=== PATIENT | male | born 1985 | race Caucasian/White ===

== ENCOUNTER 2024-04-28 17:35 | Emergency (ER) | payer MEDICAID ==
[~2024-04-28] VITALS: Ht 182.9 cm; Wt 98.5 kg
[2024-04-28] MEDS ORDERED: CLIN-214 PO (18:44)
[2024-04-28] MEDS: clindamycin 150mg capsule PO ONE (18:52)
[2024-04-28 19:23] VITALS: BP 171/114; PULSE 81; RESP 17; TEMP 98.2; O2SAT 100
[2024-04-28] MEDS: LIDOcaine 1% W/epiNEPHrine 1:100,000 20ml vial SQ ONE (19:23)
== END 2024-04-28 19:25 | disposition home or self-care (01) ==
LOC: ER 17:37
DX: L02.212 Cutaneous abscess of back [any part, except buttock and flank] (principal)
CPT/HCPCS: 99283

== ENCOUNTER 2024-09-14 01:42 | Emergency (ER) | payer MEDICAID ==
[~2024-09-14] VITALS: Ht 182.9 cm; Wt 91.0 kg
[~2024-09-14 01:42] MED LIST: CHLO118L3 TOP; CLIN-214 PO; MUPI22OI30 TOP
[2024-09-14] MEDS: normal saline 1000ml 1,000 ML IV ONE (02:26)
[2024-09-14] MEDS: diphenhydrAMINE 50 mg/ml inj IV ONE ×2 (02:27→09:01)
[2024-09-14] MEDS: acetaminophen 1,000mg/100ml IV 100 ML IV ONE (02:27)
[2024-09-14] MEDS: proCHLORperazine 10 MG/2 ml inj IV ONE (02:28)
[2024-09-14] MEDS: hydrALAZINE 20mg/ml inj. IV ONE (02:29)
[2024-09-14] MEDS: haloperidol lactate 5mg/ml inj IM ONE (03:56)
[2024-09-14] MEDS: lisinopril 10 MG tablet PO ONE (03:58)
[2024-09-14] MEDS: amLODIPine 5mg tablet PO ONE (03:58)
[2024-09-14 04:46] LABS: BILIRUBIN,URINE NEGATIVE (Neg); CLARITY,URINE CLEAR (Clear); COLOR,URINE YELLOW (Yellow); GLUCOSE, URINE NEGATIVE (Neg); KETONES,URINE NEGATIVE (Neg); LEUKOCYTE ESTERASE ,URINE NEGATIVE (Neg); NITRITES, URINE NEGATIVE (Neg); OCCULT BLOOD,URINE NEGATIVE (Neg); PROTEIN,URINE NEGATIVE (Neg)
[2024-09-14 04:48] LABS: UA COLLECTION TYPE CLN CATCH MIDSTREAM
[2024-09-14] MEDS: niCARDipine-NS 40mg/200ml IVPB 200 ML IV PRN (04:59)
[2024-09-14 05:05] LABS: URINE AMPHETAMINE SCREEN POSITIVE (Neg); URINE BARBITUATE SCREEN NEGATIVE (Neg); URINE BENZODIAZEPINES SCREEN NEGATIVE (Neg); URINE CANNABINOID SCREEN NEGATIVE (Neg); URINE COCAINE SCREEN NEGATIVE (Neg); URINE METHADONE SCREEN NEGATIVE (Neg); URINE OPIATE SCREEN NEGATIVE (Neg); URINE PHENCYCLIDINE SCREEN NEGATIVE (Neg)
[2024-09-14 05:09] LABS: BASOPHILS # (AUTO) 0.1 X10'3 (0-0.2); BASOPHILS % (AUTO) 0.6 % (0-1); EOSINOPHILS % (AUTO) 0.1 % (0-6); HEMATOCRIT 43.7 % (42.0-52.0); LYMPHOCYTES # (AUTO) 1.5 X10'3 (1.1-4.8); LYMPHOCYTES % (AUTO) 8.9 % (21-51); MEAN CORPUSCULAR HEMOGLOBIN 30.6 PG (27.0-31.0); MEAN CORPUSCULAR HGB CONC 34.3 g/dL (33.0-36.5); MEAN CORPUSCULAR VOLUME 89.1 FL (78-98); MEAN PLATELET VOLUME 7.4 FL (7.4-10.4); MONOCYTES % (AUTO) 5.7 % (2-12); NEUTROPHILS # (AUTO) 14.7 X10'3 (1.8-7.7); NEUTROPHILS % (AUTO) 84.7 % (42-75); PLATELET COUNT 384 X10'3 (140-440); RED CELL DISTRIBUTION WIDTH 14.7 % (11.5-14.5); WHITE BLOOD COUNT 17.3 X10'3 (4.5-11.0)
[2024-09-14 05:27] LABS: ALANINE AMINOTRANSFERASE 30 U/L (12-78); ALBUMIN 3.6 G/DL (3.4-5.0); ALBUMIN/GLOBULIN RATIO 0.8 (1.1-1.5); ALKALINE PHOSPHATASE 73 IU/L (46-116); ANION GAP 10 (8-16); BLOOD UREA NITROGEN 7 MG/DL (7-18); BUN/CREATININE RATIO 8.4 (10.0-20.0); CALCIUM 9.1 MG/DL (8.5-10.1); CHLORIDE 103 MMOL/L (99-107); CREATININE 0.83 MG/DL (0.60-1.10); GLUCOSE 105 MG/DL (70-104); SODIUM 138 MMOL/L (135-145); TOTAL CARBON DIOXIDE 25.3 MMOL/L (24-32); TOTAL PROTEIN 8.1 G/DL (6.4-8.2); eCRCL 134 ML/MIN; eGFR > 90 ML/MIN
[2024-09-14 05:29] LABS: ASPARTATE AMINO TRANSFERASE 29 U/L (10-37); POTASSIUM 3.7 MMOL/L (3.5-5.1)
[2024-09-14] MEDS ORDERED: BUTA-245 PO (08:54)
[2024-09-14] MEDS ORDERED: DOXY100T2 PO (08:55)
[2024-09-14] MEDS: metoclopramide 5 mg/ml inj IV ONE (09:01)
[2024-09-14] MEDS: morphine 4 MG/ML inj SYRINge IV ONE (09:02)
[2024-09-14 09:51] VITALS: BP 131/90; PULSE 72; RESP 12; TEMP 98.1; O2SAT 100
== END 2024-09-14 09:52 | disposition home or self-care (01) ==
LOC: ER 01:43
DX: G43.909 Migraine, unspecified, not intractable, without status migrainosus (principal); F19.10 Other psychoactive substance abuse, uncomplicated
CPT/HCPCS: 36415; 70450; 80053; 80305; 81003; 84145; 85025; 86885; 86900; 86901; 96365; 96366; 96372; 96375; 96376; 99285; J0131; J0360; J0780; J1200; J1630; J2270; J2765; J3490; J7030

== ENCOUNTER 2025-03-06 18:22 | Emergency (ER) | payer MEDICAID ==
[~2025-03-06] VITALS: Ht 182.9 cm; Wt 67.8 kg
[~2025-03-06 18:22] MED LIST changes: +BUTA-245 PO; +DOXY100T2 PO; -MUPI22OI30 TOP
[2025-03-06 18:26] VITALS: BP 132/79; PULSE 95; RESP 16; TEMP 97.7; O2SAT 100
--- NOTE | 2025-03-06 18:56 | Physician Documentation ---
History of Present Illness ~ Chief Complaint: Bite-insect Stated Complaint: SPIDER BITE OK to notify your PCP?: Yes Source: patient Mode of Arrival: POV Exam Limitations: no limitations HPI 39-year-old male presents for possible spider bite to right knee and right upper thigh which he noticed yesterday. He has reporting increased, pain swelling, redness to these areas. Denies a history of MRSA or fevers. Has not taken any pain medication for his symptoms yet. Tetanus within 5 years?: Yes Medication Reconciliation Allergies: Coded Allergies: No Known Allergies (Unverified , 03/06/25) Scheduled Chlorhexidine Gluconate (Chlorhexidine Gluconate), 1 APPLIC TOP DAILY Clindamycin HCl (Clindamycin HCl CAPSULE), 2 CAP PO TID Doxycycline Hyclate (Doxycycline Hyclate), 1 TAB PO Q12H Scheduled PRN Butalb/Acetaminophen/Caffeine (Fioricet Tab), 1 TAB PO QDAY PRN PRN for pain Review of Systems All Other Systems at this time: Reviewed and Negative Physical Exam Vital Signs: RN Vital Signs have been reviewed: Yes, Temperature: 97.7, Source: Temporal, Heart Rate: 95, Respiratory Rate: 16, BP: 132/79, Pulse Oximetry: 100, Weight: 67.800 Oxygen Flow Rate: 0 Pulse Oximetry Reflects: adequate oxygenation Physical Exam General: Alert, no distress. HEENT: No injection, moist mucous membranes. Neck: Full range of motion. Respiratory: No respiratory distress, equal chest rise and fall. Chest: No accessory muscle use. Cardiovascular: Regular rate and rhythm. Gastrointestinal: Nondistended. Extremities: Normal range of motion, no deformity. Neurologic: Oriented x4. Psychiatric: Normal mood and affect. Skin: Erythema and induration of right knee and right upper thigh. Progress Results/Orders Results/Orders Vital Signs 03/06/25 18:26 Temp 97.7 Pulse 95 Resp 16 B/P (MAP) 132/79 Pulse Ox 100 O2 Flow Rate 0 Departure Referrals: NO PRIMARY CARE PROVIDER (PCP) Additional Comment Medical Screen Exam This patient recieved a medical screening examination. After reviewing the individual's medical complaints with presenting symptoms and performing an appropriate physical examination, it was determined that no immediate life- threatening emergency medical condition is present. This individual is also not a women having contractions. [facility]AU [facility] Mar 06, 2025 18:56
[2025-03-06] MEDS: ibuprofen tablet 400 MG TABLET PO ONE (19:15)
== END 2025-03-06 20:37 | disposition left against medical advice (07) ==
LOC: ER 18:23
DX: M79.651 Pain in right thigh (principal); M79.89 Other specified soft tissue disorders; Z88.8 Allergy status to other drugs, medicaments and biological substances
CPT/HCPCS: 99282